=== PATIENT | male | born 1970 | race Caucasian/White ===

== ENCOUNTER 2022-08-14 09:25 | Emergency (ER) | payer OTHER ==
[2022-08-14] VITALS (11 sets, daily range): BP systolic 100–129; BP diastolic 56–82
[~2022-08-14] VITALS: Ht 185.4 cm; Wt 117.9 kg
[~2022-08-14 09:25] MED LIST: CARVEDILOL6.25 MG PO; CLOPIDOGREL75 MG PO; ENTRESTO 24-261 TAB PO; FAMOTIDINE20 M3 PO; LIPITOR80 M1 PO; LOPID600 MG PO; NITROSTAT0.4 MG SL; TRAMADOL HYDROC50 M1 PO
[2022-08-14 10:09] LABS: BASO% 0.6 % (0-3); EOS% 3.4 % (0-8); HEMATOCRIT 48.5 % (39.0-50.0); HEMOGLOBIN 15.5 g/dl (14.0-18.0); IMMATURE GRANULOCYTES 0.3 % (0.0-5.0); LYMPH% 19.5 % (15-41); MEAN CELL VOLUME 90.8 fL CALC (80.0-100.0); MONO% 9.6 % (2-13); NEUT# 6.22 thou/uL (1.82-7.42); NEUT% 66.6 % (42-76); RED BLOOD COUNT 5.34 mill/uL (4.70-6.10); RED CELL DISTRI WIDTH 13.6 % (11.5-15.5)
[2022-08-14 10:26] LABS: PROTHROMBIN TIME 9.9 SECONDS (9.0-12.5)
[2022-08-14 10:27] LABS: ALBUMIN 4.8 g/dL (3.2-5.0); ALKALINE PHOSPHATASE 94 u/l (38-126); ANION GAP 15 (6-22 (CALC)); BILIRUBIN, TOTAL 0.6 mg/dL (0.2-1.3); BUN 19 mg/dL (9-20); BUN/CREATININE RATIO 20 (12-20 (CALC)); CARBON DIOXIDE 21 mmol/l (22-30); CHLORIDE 109 mmol/l (95-108); CREATININE 0.9 mg/dL (0.7-1.3); GFR FOR AFR.AMER. > 60 ML/MIN (>=60 (CALC)); GFR OTHER RACES > 60 ML/MIN (>=60 (CALC)); LIPASE 105 u/l (23-300); POTASSIUM 4.9 mmol/l (3.5-5.1); SGOT/AST 31 u/l (17-59); SODIUM 140 mmol/l (137-146); TOTAL PROTEIN 7.9 g/dL (6.3-8.2)
== END 2022-08-14 13:17 | disposition home or self-care (01) | DRG 379 ==
LOC: ED 09:25
PROVIDERS: Family Medicine
DX: K92.1 Melena (principal); I25.10 Atherosclerotic heart disease of native coronary artery without angina pectoris; I10 Essential (primary) hypertension; I71.43 Infrarenal abdominal aortic aneurysm, without rupture
CPT/HCPCS: Q9967

== ENCOUNTER 2022-12-19 07:05 | Day surgery (SDC) | payer OTHER ==
[~2022-12-19] VITALS: Ht 185.4 cm; Wt 113.4 kg
[~2022-12-19 07:05] MED LIST changes: +LOVENOX100 MG/1 M SC; +OMEGA-3 FISH1000 MG PO
[2022-12-19 09:01] VITALS: BP 101/68
== END 2022-12-19 09:07 | disposition home or self-care (01) | DRG 379 ==
LOC: ORM 07:05
PROVIDERS: ATTEND Surgery
PROC: 0DJD8ZZ Inspection of Lower Intestinal Tract, Via Natural or Artificial Opening Endoscopic (ICD-10-PCS; principal; 2022-12-19)
DX: K92.1 Melena (principal); K64.8 Other hemorrhoids; K64.4 Residual hemorrhoidal skin tags; I10 Essential (primary) hypertension; Z95.5 Presence of coronary angioplasty implant and graft; R07.9 Chest pain, unspecified

== ENCOUNTER 2023-11-17 14:35 | Observation (INO) | payer OTHER ==
[2023-11-17] VITALS (16 sets, daily range): BP systolic 104–145; BP diastolic 69–88
[~2023-11-17] VITALS: Ht 185.4 cm; Wt 111.0 kg
--- NOTE | 2023-11-17 14:45 | NUR ---
PATIENT TO ROOM 6 VIA EMS
[2023-11-17] MEDS ORDERED: ASPIRIN 81 LOW81 MG (14:47)
[2023-11-17 15:08] LABS: BASO% 0.7 % (0-3); EOS% 4.2 % (0-8); IMMATURE GRANULOCYTES 0.1 % (0.0-5.0); LYMPH% 25.7 % (15-41); MEAN CELL VOLUME 89.6 fL CALC (80.0-100.0); MEAN CORPUSCULAR HGB 29.9 pG CALC (26.0-32.0); MEAN CORPUSCULAR HGB CONC 33.3 g/dL CAL (32.0-36.0); NEUT# 5.95 thou/uL (1.82-7.42); NEUT% 61.3 % (42-76); RED BLOOD COUNT 5.02 mill/uL (4.70-6.10); RED CELL DISTRI WIDTH 13.4 % (11.5-15.5)
[2023-11-17 15:21] LABS: ALBUMIN 4.6 g/dL (3.2-5.0); ALKALINE PHOSPHATASE 99 u/l (38-126); ANION GAP 13 (6-22 (CALC)); BILIRUBIN, TOTAL 0.7 mg/dL (0.2-1.3); BUN 20 mg/dL (9-20); BUN/CREATININE RATIO 17 (12-20 (CALC)); CARBON DIOXIDE 21 mmol/l (22-30); CHLORIDE 111 mmol/l (95-108); CREATININE 1.1 mg/dL (0.7-1.3); ESTIMATED GFR 81 ML/MIN (>=90 (CALC)); POTASSIUM 4.1 mmol/l (3.5-5.1); SGOT/AST 29 u/l (17-59); SODIUM 141 mmol/l (137-146); TOTAL PROTEIN 7.9 g/dL (6.3-8.2)
--- NOTE | 2023-11-17 15:36 | NUR ---
VSS. NAD NOTED. PT STATES PAIN STARTED AT 8/10 AND WAS RELIEVED WITH SL NTG. PAIN 2/10 AT THIS TIME
--- NOTE | 2023-11-17 15:37 | NUR ---
PT GIVEN URINAL
--- NOTE | 2023-11-17 18:04 | NUR ---
ATTEMPTED TO CALL REPORT FOR PT
[2023-11-17] MEDS ORDERED: ACETAMINOPHEN 325 MG/TAB PO PRN (18:05)
[2023-11-17] MEDS ORDERED: MAGNESIUM HYDROXIDE 30 ML UDC PO PRN (18:05)
[2023-11-17] MEDS ORDERED: Zaleplon 5 MG/CAP PO PRN (18:05)
--- NOTE | 2023-11-17 18:10 | NUR ---
REPORT GIVEN TO ADMITING NURSE
--- NOTE | 2023-11-17 18:32 | NUR ---
PATIENT ADMITTED FROM ED TO ROOM 271. SECURITY GUARDS AT BEDSIDE. PATIENT A&OX4 AND ABLE TO MAKE NEEDS KNOWN. WILL CONTINUE TO MONITOR.
--- NOTE | 2023-11-17 18:48 | NUR ---
PT TRANSPORTED UPSTAIRS AT 1832
--- NOTE | 2023-11-17 20:00 | NUR ---
REPORT RECIEVED FROM DAYSHIFT NURSE. PT IS A&O X4, AND ABLE TO MAKE NEEDS KNOWN. GUARDS AT BEDSIDE. TELE IN PLACE. ABDOMEN IS SOFT, AND BOWEL SOUNDS ARE ACTIVE X4 QUADRANTS. LUNG SOUNDS CLEAR UPON AUSCULTATION. URINAL AT BEDSIDE, URINE IS CLEAR AND YELLOW. PERIPHERAL PULSES ARE STRONG. PT DENIES ANY PAIN AT THIS TIME. PT STATES THAT HIS LAST BM WAS YESTERDAY. NO FUTHER COMPLAINTS VOICED FROM THE PT AT THIS TIME. IV SITE HEALTHY AND INTACT. PT EDUCATED ON POC AND MEDICATION SCHEDULE. CALL LIGHT IN REACH, AND SAFETY PRECAUTIONS IN PLACE.
[2023-11-17] MEDS ORDERED: CARVEDILOL 6.25 MG/TAB PO SCH (21:00)
[2023-11-17] MEDS ORDERED: ENOXAPARIN SODIUM 40 MG/0.4 ML SYR SC SCH (21:00)
[2023-11-17] MEDS ORDERED: ATORVASTATIN CALCIUM 40 MG/TAB PO SCH (21:00)
[2023-11-18 00:03] VITALS: BP 103/61
--- NOTE | 2023-11-18 00:30 | NUR ---
PT RESTING IN BED. RESPIRATIONS ARE EVEN AND UNLABORED. GUARDS AT BEDSIDE. NO S&S OF DISTRESS NOTED AT THIS TIME. CALL LIGHT IN REACH, AND SAFETY PRECAUTIONS IN PLACE.
[2023-11-18 03:36] VITALS: BP 102/67
--- NOTE | 2023-11-18 04:25 | NUR ---
PT RESTING IN BED, RESPIRATIONS ARE EVEN AND UNLABORED. PT DENIES ANY NEEDS AT THIS TIME. GUARDS REMAIN AT BEDSIDE. PT DOES NOT SHOW ANY S&S OF DISTRESS AT THIS TIME. CALL LIGHT IN REACH, AND SAFETY PRECAUTIONS IN PLACE.
[2023-11-18 06:10] LABS: CHOLESTEROL HDL RATIO 4.5 (<4.4 (CALC))
[2023-11-18 06:48] VITALS: BP 113/75
--- NOTE | 2023-11-18 07:47 | NUR ---
PT IS AOX4, RESPIRATIONS ARE EVEN AND UNLABORED, LUNGS ARE CLEAR, BOWEL SOUNDS ARE ACTIVE, PEDAL LULSES ARE PALPABLE TO TOUCH, PT DENIES ANY CHEST PAIN, DENIES ANY PAIN AT THIS TIME. 2 GUARDS AT BEDSIDE.
[2023-11-18] MEDS ORDERED: ASPIRIN 81 MG/TAB PO SCH (09:00)
[2023-11-18] MEDS ORDERED: CLOPIDOGREL BISULFATE 75 MG/TAB TAB PO SCH (09:00)
[2023-11-18 10:36] VITALS: BP 103/71
--- NOTE | 2023-11-18 15:21 | NUR ---
UPDATE PROVIDED TO [facility] NURSE.
--- NOTE | 2023-11-18 15:31 | NUR ---
DISCHARGE INSTRUCTIONS REVIEWED WITH PT, IV REMOVED, TELE BOX REMOVED AND PLACED IN RETURN BIN AT NURSES STATION.
--- NOTE | 2023-11-18 15:37 | NUR ---
PT LEFT THE FLOOR VIA WHEELCHAIR TRANSPORT WITH 2 GUARDS AT HIS SIDE.
== END 2023-11-18 15:37 | disposition designated cancer center or children's hospital (05) | DRG 313 ==
LOC: ED 14:35 → ED-I 17:24 → ED 17:36 → MS2 17:37
PROVIDERS: Family Medicine; ADMIT Internal Medicine; ATTEND Internal Medicine
DX: R07.9 Chest pain, unspecified (principal); R94.31 Abnormal electrocardiogram [ECG] [EKG]; I10 Essential (primary) hypertension; I25.10 Atherosclerotic heart disease of native coronary artery without angina pectoris; I25.2 Old myocardial infarction; Z79.02 Long term (current) use of antithrombotics/antiplatelets; Z95.5 Presence of coronary angioplasty implant and graft
CPT/HCPCS: G0378; J1650

== ENCOUNTER 2024-07-12 08:35 | Day surgery (SDC) | payer OTHER ==
[~2024-07-12] VITALS: Ht 185.4 cm; Wt 114.3 kg
[~2024-07-12 08:35] MED LIST changes: +ASPIRIN 81 LOW81 MG; +IBUPAK600 MG PO
[2024-07-12] MEDS ORDERED: SODIUM CHLORIDE 0.9% 1,000 ML IV ONE (08:58)
[2024-07-12] MEDS ORDERED: FAMOTIDINE 10MG/ML 2ML SDV IV ONE (08:58)
[2024-07-12] MEDS ORDERED: ceFAZolin Sodium 2 GM/VIAL SDV ONE (08:58)
[2024-07-12] MEDS ORDERED: SODIUM CHLORIDE 0.9% 0 ML IV ONE (08:59)
[2024-07-12] MEDS ORDERED: LIDOcaine HCl 1% (Local Anesth.) 20 ML VIAL ONE (09:24)
[2024-07-12] MEDS ORDERED: CLINDAMYCIN PHOSPHATE 50 ML IV SCH (09:45)
[2024-07-12] MEDS ORDERED: TORADOL PO (11:24)
[2024-07-12] MEDS ORDERED: TRAMADOL HYDROC50 M1 PO (11:24)
[2024-07-12] MEDS ORDERED: ACETAMINOPHEN 100 ML IV ONE (11:43)
[2024-07-12] MEDS ORDERED: HYDROmorphone HCL 2 MG/AMP ONE (11:50)
[2024-07-12] MEDS ORDERED: STERILE WATER FOR IRRIGATION 500 ML BTL IR ONE (11:53)
[2024-07-12] MEDS ORDERED: ONDANSETRON HCl 4 MG/2 ML SDV ONE (12:18)
[2024-07-12 13:09] VITALS: BP 117/75
[2024-07-12] MEDS ORDERED: SUCCINYLCHOLINE CHLORIDE 20 MG/ML 10ML VIAL IV ONE (14:59)
[2024-07-12] MEDS ORDERED: SODIUM CHLORIDE 0.9% 1,000 ML BAG IV ONE (14:59)
[2024-07-12] MEDS ORDERED: LIDOCAINE HCL 2% 2ML SDV IV ONE (14:59)
[2024-07-12] MEDS ORDERED: ePHEDrine SULFATE 50 MG/ML AMP IV ONE (14:59)
[2024-07-12] MEDS ORDERED: ROCURONIUM BROMIDE 10 MG/ML 5 ML VIAL IV ONE (14:59)
[2024-07-12] MEDS ORDERED: PROPOFOL 200 MG/20 ML VIAL IV ONE (14:59)
[2024-07-12] MEDS ORDERED: ONDANSETRON HCl 4 MG/2 ML SDV IV ONE (14:59)
[2024-07-12] MEDS ORDERED: SUGAMMADEX SODIUM 200 MG/2 ML SDV IV ONE (14:59)
== END 2024-07-12 13:30 | disposition designated cancer center or children's hospital (05) | DRG 355 ==
LOC: ORM 08:35
PROVIDERS: ATTEND Surgery
PROC: 0WUF4JZ Supplement Abdominal Wall with Synthetic Substitute, Percutaneous Endoscopic Approach (ICD-10-PCS; principal; 2024-07-12)
DX: K43.9 Ventral hernia without obstruction or gangrene (principal); K42.9 Umbilical hernia without obstruction or gangrene; I10 Essential (primary) hypertension; I25.2 Old myocardial infarction; Z95.5 Presence of coronary angioplasty implant and graft
CPT/HCPCS: J0131; J0690; J0736; J1171; J2405